=== PATIENT | female | born 1955 | race Caucasian/White ===

== ENCOUNTER 2016-08-29 11:30 | Emergency (ER) | payer OTHER ==
--- NOTE | 2016-08-29 13:41 | RAD ---
INDICATION: Cough, smoking history. COMPARISON: There are no prior studies available for comparison. TECHNIQUE: Dual-energy PA and lateral views of the chest were obtained. FINDINGS: The heart is within normal limits in size. Mediastinal and hilar contours appear within normal limits. The lungs are hyperinflated and clear. No pleural effusion is present. The patient is status post right axillary node dissection. There also appears to be an anterior fusion of the lower cervical spine which is partially visualized on this study. IMPRESSION: FINDINGS SUGGESTIVE OF COPD, NO EVIDENCE FOR ACUTE FINDING.
[2016-08-29 13:46] LABS: Hematocrit 45 % (35-47); Hemoglobin 14.8 g/dl (12.0-16.0); Mean Corpuscular HGB Conc 33 g/dl (31-36); Mean Corpuscular Hemoglobin 30 pg (27-31); Mean Corpuscular Volume 89 fL (80-97); Mean Platelet Volume 9 um3 (7.4-10.4); Red Blood Count 5.02 10^6/ul (4.0-5.4); Red Cell Distribution Width 14 % (10.5-15); White Blood Count 6.2 10^3/ul (3.5-10.8)
[2016-08-29 14:01] LABS: Albumin 4.6 g/dL (3.2-5.2); BUN/Creatinine Ratio 13.8 (8-20); Calcium 9.8 mg/dL (8.6-10.3); EGFR African American 85.7 (>60); EGFR Non-African American 66.6 (>60); Globulin 3.2 g/dL (2-4); Potassium 4.5 mmol/L (3.5-5.0); Total Bilirubin 0.4 mg/dL (0.2-1.0); Total Protein 7.8 g/dL (6.4-8.9)
[2016-08-29] MEDS ORDERED: Iohexol 300* (CONTRAST) 10 ML SDV IV ONE (15:09)
--- NOTE | 2016-08-29 16:02 | RAD ---
Indication: Left inguinal adenopathy, lymphoma. CT of the abdomen and pelvis was performed after oral and IV contrast administration. Coronal and sagittal reconstructed images were obtained. Administered 79.0 ml of OMNIPAQUE 300 mgi/ml was given according to hospital protocol. Lung bases demonstrate no pleural fluid, nodules or masses. Heart demonstrates no pericardial effusion. The liver is normal in size. No focal lesions or intrahepatic ductal dilatation is noted. The patient status post cholecystectomy. The spleen is normal in size. Pancreas demonstrates no mass effect or ductal dilatation. The common duct is not dilated. The patient is status post cholecystectomy. No adrenal masses are noted. The kidneys demonstrate symmetric nephrograms. Atherosclerotic aorta is noted. No dilated loops of bowel are noted. The colon is filled with stool. CT of the pelvis and straight no retroperitoneal or pelvic lymphadenopathy. The urinary bladder is unremarkable. No dilated loops of bowel are noted. The colon is filled with stool. The appendix is visualized and is normal. Small scattered lymph nodes are noted in the inguinal region. They do not appear to be abnormally enlarged. There is suggestion of a left-sided inguinal hernia with some mild infiltration of fat. This may be related to the patient's palpable mass. This measures approximately 2.1 cm. IMPRESSION: NO EVIDENCE OF INGUINAL ADENOPATHY WITH SMALL SCATTERED LYMPH NODES ARE NOTED. NO RETROPERITONEAL ADENOPATHY IS NOTED. THERE IS A LEFT INGUINAL HERNIA CONTAINING FAT AND OMENTUM WITH SOME INDURATION OF FAT. THIS MAY BE RELATED TO THE PATIENT'S PALPABLE NODULE.
[2016-08-29 16:51] VITALS: BP 117/66
--- NOTE | 2016-08-29 21:55 | ED ---
Abebe Le Adam, scribed for Freddie Bergeron MD on 08/29/16 at 1311 . Complex/Multi-Sys Presentation - HPI Summary HPI Summary: Pt is a 61 year old female presenting with concerns about a lump in her left groin that she noticed last night. She has a Hx of cancer at age 36 and states that she had part of her breast and lymph nodes removed. She also reports cough , swollen glands, chest congestion, night sweats, and disturbed sleep patterns over the past month. Hx of tobacco use. FMHx of cancer. - History Of Current Complaint Chief Complaint: EDUpperRespComplaint Time Seen by Provider: 08/29/16 12:57 Hx Obtained From: Patient Onset/Duration: Gradual Onset, Lasting Days, Still Present Timing: Constant Severity Currently: Moderate Severity Initially: Moderate Location: Pain At: - Lump in left groin Aggravating Factor(s): Nothing Alleviating Factor(s): Nothing Associated Signs And Symptoms: Positive: Cough - Allergies/Home Medications Allergies/Adverse Reactions: Allergies Allergy/AdvReac Type Severity Reaction Status Date / Time No Known Allergies Allergy Verified 08/29/16 11:46 PMH/Surg Hx/FS Hx/Imm Hx Infectious Disease History: No Infectious Disease History: Denies: Traveled Outside the [place] in Last 30 Days - Family History Known Family History: Positive: Other - Cancer - Social History Occupation: Unemployed Lives: Alone Alcohol Use: Occasionally Hx Tobacco Use: Yes Smoking Status (MU): Current Every Day Smoker Type: Cigarettes Review of Systems Positive: Other - Disturbed sleep patterns Positive: Other - Congestion Positive: Cough Positive: Other - Lump in left groin All Other Systems Reviewed And Are Negative: Yes Physical Exam - Summary Physical Exam Summary: General: Comfortable, pleasant, no distress, alert. HEENT: Tenderness in the right angle of the mandible without any large obvious adenopathy. Upper and lower dentures. No oral lesions or masses. Neck: Soft, supple. Heart: S1, S2, RRR, no murmurs, rubs, or gallops Lungs: Clear to auscultation, talking and breathing comfortable, good air movement throughout, no wheezes or rales Abdominal: Soft, flat, no organomegaly. Extremities: Mildly tender lymph node in the left inguinal canal, extremely mobile, discrete, smooth borders. No pitting edema in the lower extremities, calves are nontender. Femoral pulses 2+, no pulsatile mass. No adenopathy in axilla or supraclavicular area. Neuro: Alert and oriented x 3. CN 3-12 intact. Psych: Logical, coherent Triage Information Reviewed: Yes Vital Signs On Initial Exam: Initial Vitals Temp Pulse Resp BP Pulse Ox 98.3 F 91 20 133/78 100 08/29/16 11:41 08/29/16 11:41 08/29/16 11:41 08/29/16 11:41 08/29/16 11:41 Vital Signs Reviewed: Yes Diagnostics - Vital Signs Vital Signs Temp Pulse Resp BP Pulse Ox 08/29/16 11:41 98.3 F 91 20 133/78 100 - Laboratory Lab Results: Lab Results 08/29/16 08/29/16 08/29/16 Range/Units 13:35 13:35 13:35 WBC 6.2 (3.5-10.8) 10^3/ul RBC 5.02 (4.0-5.4) 10^6/ul Hgb 14.8 (12.0-16.0) g/dl Hct 45 (35-47) % MCV 89 (80-97) fL MCH 30 (27-31) pg MCHC 33 (31-36) g/dl RDW 14 (10.5-15) % Plt Count 217 (150-450) 10^3/ul MPV 9 (7.4-10.4) um3 Neut % (Auto) 72.5 (38-83) % Lymph % (Auto) 20.8 L (25-47) % Archer % (Auto) 4.8 (1-9) % Eos % (Auto) 1.1 (0-6) % Baso % (Auto) 0.8 (0-2) % Absolute Neuts (auto) 4.5 (1.5-7.7) 10^3/ul Absolute Lymphs (auto) 1.3 (1.0-4.8) 10^3/ul Absolute Monos (auto) 0.3 (0-0.8) 10^3/ul Absolute Eos (auto) 0.1 (0-0.6) 10^3/ul Absolute Basos (auto) 0 (0-0.2) 10^3/ul Absolute Nucleated RBC 0.01 10^3/ul Nucleated RBC % 0.1 Sodium 138 (133-145) mmol/L Potassium 4.5 (3.5-5.0) mmol/L Chloride 102 (101-111) mmol/L Carbon Dioxide 29 (22-32) mmol/L Anion Gap 7 (2-11) mmol/L BUN 12 (6-24) mg/dL Creatinine 0.87 (0.51-0.95) mg/dL Est GFR ( Amer) 85.7 (>60) Est GFR (Non-Af Amer) 66.6 (>60) BUN/Creatinine Ratio 13.8 (8-20) Glucose 90 (70-100) mg/dL Lactic Acid 0.6 (0.5-2.0) mmol/L Calcium 9.8 (8.6-10.3) mg/dL Total Bilirubin 0.40 (0.2-1.0) mg/dL AST 11 L (13-39) U/L ALT 9 (7-52) U/L Alkaline Phosphatase 108 H (34-104) U/L Total Protein 7.8 (6.4-8.9) g/dL Albumin 4.6 (3.2-5.2) g/dL Globulin 3.2 (2-4) g/dL Albumin/Globulin Ratio 1.4 (1-3) Result Diagrams: 08/29/16 13:35 08/29/16 13:35 Lab Statement: Any lab studies that have been ordered have been reviewed, and results considered in the medical decision making process. - Radiology CXR Radiology Interpretation Completed By: Radiologist - IMPRESSION: FINDINGS SUGGESTIVE OF COPD, NO EVIDENCE FOR ACUTE FINDING. - CT A/P CT Interpretation Completed By: Radiologist - IMPRESSION: NO EVIDENCE OF INGUINAL ADENOPATHY WITH SMALL SCATTERED LYMPH NODES ARE NOTED. NO RETROPERITONEAL ADENOPATHY IS NOTED. THERE IS A LEFT INGUINAL HERNIA CONTAINING FAT AND OMENTUM WITH SOME INDURATION OF FAT. THIS MAY BE RELATED TO THE PATIENT'S PALPABLE NODULE. Complex Multi-Symp Course/Dx Assessment/Plan: She presents essentially for her fear of having cancer. She has a lymph node that is somewhat enlarged in her left inguinal canal. It was mildly tender but not appearing inflamed or abscessed. She has a Hx of aggressive cancer which she does not know the name of. She is somewhat unreliable with following up with her PCP. For this reason we did scan for her lymphoma but found nothing. She has had a cough for a few weeks and I believe azithromycin is the next step. She will return for any SOB, fever, or worsening symptoms. Otherwise she will follow up with her PCP for routine screening. She has never had a colonoscopy and she has not had a mammogram in several years. We have made her aware that cancer is still a possibility given her night sweats and weight loss, and today was not considered a full cancer work-up. - Diagnoses Provider Diagnoses: Inguinal adenopathy Discharge - Discharge Plan Condition: Good Disposition: HOME Prescriptions: Azithromyxin STEFAN (NF) [Z-Stefan (Zithromax) 250 mg tabs #6] 2 tab PO .TODAY, THEN 1 DAILY #6 tab Patient Education Materials: Lymphangitis (ED) Referrals: No Primary Care Phys,NOPCP [Primary Care Provider] - Additional Instructions: follow up with your PCP within 1 wk for f/u. The documentation as recorded by the Abebe yousif Adam accurately reflects the service I personally performed and the decisions made by me, Freddie Bergeron MD.
== END 2016-08-29 16:58 | disposition home or self-care (01) ==
LOC: ED 11:30
DX: R59.0 Localized enlarged lymph nodes (principal); R05 Cough; R19.00 Intra-abdominal and pelvic swelling, mass and lump, unspecified site; G47.9 Sleep disorder, unspecified; F17.210 Nicotine dependence, cigarettes, uncomplicated
CPT/HCPCS: 36415; 71020; 74177; 80053; 83605; 85025; 99283; Q9967

== ENCOUNTER 2016-09-30 09:12 | Observation (INO) | payer OTHER ==
[2016-09-30] MEDS ORDERED: Aspirin Low Dose CHEW TAB* 81 MG PO ONE (11:03)
[2016-09-30 13:11] LABS: Hematocrit 42 % (35-47); Hemoglobin 13.8 g/dl (12.0-16.0); Mean Corpuscular HGB Conc 33 g/dl (31-36); Mean Corpuscular Hemoglobin 30 pg (27-31); Mean Corpuscular Volume 90 fL (80-97); Mean Platelet Volume 9 um3 (7.4-10.4); Red Blood Count 4.63 10^6/ul (4.0-5.4); Red Cell Distribution Width 14 % (10.5-15); White Blood Count 6.2 10^3/ul (3.5-10.8)
[2016-09-30 13:25] LABS: Albumin 4.2 g/dL (3.2-5.2); BUN/Creatinine Ratio 14.5 (8-20); Calcium 9.5 mg/dL (8.6-10.3); EGFR African American 90.5 (>60); EGFR Non-African American 70.4 (>60); Globulin 2.9 g/dL (2-4); Potassium 3.9 mmol/L (3.5-5.0); Total Bilirubin 0.5 mg/dL (0.2-1.0); Total Protein 7.1 g/dL (6.4-8.9); Troponin I 0.02 ng/mL (<0.04)
--- NOTE | 2016-09-30 13:36 | RAD ---
HISTORY: Chest pain COMPARISONS: August 29, 2016 VIEWS:1: Single frontal portable view of the chest at 12:45 PM FINDINGS: LINES AND TUBES: None. CARDIOMEDIASTINAL SILHOUETTE: The cardiomediastinal silhouette is normal for portable technique. PLEURA: The costophrenic angles are sharp. No pleural abnormalities are noted. LUNG PARENCHYMA: The lungs are clear. ABDOMEN: The upper abdomen is clear. There is no subphrenic gas. BONES AND SOFT TISSUES: No bone or soft tissue abnormalities are noted. IMPRESSION: NO ACTIVE CARDIOPULMONARY DISEASE.
[2016-09-30] MEDS ORDERED: Iohexol 350* (CONTRAST) 500 ML MDV IV ONE (13:40)
--- NOTE | 2016-09-30 14:06 | RAD ---
HISTORY: Leg swelling and pain, palpable area of the left groin COMPARISONS: None relevant TECHNIQUE: Multiple transverse and longitudinal ultrasound images were obtained of the left lower extremity from the level of the common femoral vein inferiorly through to the infrapopliteal veins using grayscale, color Doppler, and spectral Doppler imaging with and without compression and with augmentation. Comparison images were obtained of the contralateral common femoral vein. FINDINGS: VEINS: The venous system of the left lower extremity is compressible throughout its course, with normal flow on color Doppler imaging and normal response to augmentation on spectral Doppler imaging. SOFT TISSUES: In the area of palpable abnormality, there is echogenic material suggestive of fat-containing inguinal hernia. OTHER FINDINGS: None. IMPRESSION: 1. NO LEFT LOWER EXTREMITY DEEP VEIN THROMBOSIS 2. PROBABLE FAT-CONTAINING LEFT INGUINAL HERNIA. A PROBABLY BENIGN REPORT SHOULD NOT PRECLUDE OR DELAY THE EVALUATION OF A CLINICALLY SUSPICIOUS PALPABLE ABNORMALITY
--- NOTE | 2016-09-30 14:50 | RAD ---
HISTORY: Chest pain, pleuritic, breast cancer, lymphoma COMPARISONS: PET CT dated October 29, 2011 TECHNIQUE: Multiple contiguous axial CT scans of the chest were obtained after the administration of nonionic intravenous contrast, timed to the pulmonary arterial phase of contrast enhancement.. Coronal and sagittal multiplanar reformations are also submitted for review. FINDINGS: NECK AND THYROID: The lower neck and thyroid are unremarkable. CHEST WALL: There is no lower cervical, axillary, or supraclavicular lymphadenopathy by size criteria. HEART AND PERICARDIUM: The heart is unremarkable. AORTA AND PULMONARY VASCULATURE: There is no pulmonary arterial filling defect to suggest pulmonary was. Evaluation of the aorta is limited by the phase of contrast administration. There is atherosclerosis. The aorta is otherwise unremarkable for the limitations of technique. MEDIASTINUM: There is no mediastinal lymphadenopathy by size criteria. VIKTOR: There is no hilar lymphadenopathy by size criteria. AIRWAY AND ESOPHAGUS: The airway is unremarkable, without endobronchial filling defect. The esophagus is grossly normal. LUNG PARENCHYMA: There is a 0.4 cm nodule of the right middle lobe on axial image 32 PLEURA: No pleural abnormalities are noted. UPPER ABDOMEN: The upper abdomen is unremarkable. BONES AND SOFT TISSUES: Mild degenerative changes are noted OTHER: None. IMPRESSION: 1. NO PULMONARY ARTERIAL FILLING DEFECT TO SUGGEST PULMONARY EMBOLISM. 2. 0.4 CM NODULE OF THE RIGHT MIDDLE LOBE. THE DIFFERENTIAL DOES INCLUDE METASTATIC DISEASE GIVEN THE HISTORY OF MALIGNANCY. RECOMMEND ATTENTION ON FOLLOW-UP IMAGING WITH THREE-MONTH FOLLOW-UP CT OF THE CHEST
[2016-09-30] MEDS ORDERED: Ondansetron INJ* 2 MG/ML VIAL IV PRN (16:07)
[2016-09-30] MEDS ORDERED: Acetaminophen TAB* 325 MG PO PRN (16:07)
[2016-09-30] MEDS ORDERED: Mouth Piece, Nicotine* 1 EACH CARTRIDGE INH PRN (16:17)
[2016-09-30] MEDS ORDERED: Mouth Piece, Nicotine* 1 EACH CARTRIDGE ONE (18:33)
[2016-09-30] MEDS: Nicotine Inhaler* 10 MG AMP INH PRN (18:39)
--- NOTE | 2016-09-30 20:50 | HP ---
HISTORY AND PHYSICAL: DATE OF ADMISSION: 09/30/16 PRIMARY CARE PROVIDER: LYNN Verdin ATTENDING PHYSICIAN WHILE IN THE HOSPITAL: Lionel Esposito MD * (report dictated by Pablito Torres NP). CHIEF COMPLAINT: 1. Shortness of breath. 2. Chest pain. 3. Left groin pain. HISTORY OF PRESENT ILLNESS: Mrs. Garcia is a 61-year-old female patient coming into the ER today with complaints of left lower extremity leg swelling, pain that was starting in her back, radiating down her left leg. In addition to this , also found a lump in her left groin that was painful to touch. She also complained today of noticing in the last week she has had chest pain, nonexertional, happens at anytime on the left side that radiates into her chest with associated shortness of breath. Sometimes she has noticed that she has been feeling more short of breath as well. She carries a history of TIA and breast cancer in the past, currently not on any treatment. She states that she has not been sick recently. She denies any recent trips or travel. She says that she has been feeling more short of breath progressively over the weekend. She has been having trouble with this. She has also noted that she had that chest discomfort as well but no vomiting or diarrhea or any nausea and she says the pain has not been exertional. She came into the ER today because she was concerned. She was evaluated in the ER and there was concern for acute coronary syndrome and the hospitalist service was asked to evaluate for admission. PAST MEDICAL HISTORY: Significant for: 1. Breast cancer. 2. TIA. PAST SURGICAL HISTORY: 1. She has had knee surgery. 2. Laparoscopic cholecystectomy. 3. Cervical spine surgery. 4. She has had bilateral salpingo-oophorectomy. HOME MEDICATIONS: Denied. ALLERGIES TO MEDICATIONS: Denied. FAMILY HISTORY: Her mother had cancer and father had a history of SHE. SOCIAL HISTORY: She is a half a pack a day smoker for 48 years. She drinks alcohol occasionally. She is . Surrogate decision maker is her sister. REVIEW OF SYSTEMS: There is no documented fever. She denied having any significant weight change. There was no double vision. She denies having any ear discharge. There is no rhinorrhea. There is no sore throat. She denies having any thyroid enlargement. She does admit to having some chest discomfort. She does admit to having some shortness of breath. No orthopnea, no nocturnal dyspnea. There is no abdominal pain. No nausea, no vomiting. No dysuria, no frequency. No loss of consciousness, pruritus, and no skin ulcerations. Review of 14 systems completed, all others negative. PHYSICAL EXAMINATION GENERAL: At this time, Mrs. Garcia is a 61-year-old female patient. She is sitting in the ER stretcher. Does not appear to be in any acute distress. VITAL SIGNS: Reveals blood pressure 101/56, pulse 59, respirations 18, O2 sat 98%, temperature 98.8. HEENT: Head: Atraumatic, normocephalic. Eyes: EOMs are intact. Sclerae anicteric, not pale. Throat: Oral mucosa appears to be moist. No oropharyngeal erythema. NECK: Supple. LUNGS: Clear to auscultation bilaterally. No wheezes, rales, or rhonchi. HEART: Sounds S1, S2. Regular rate and rhythm. No murmurs, rubs, or gallops. ABDOMEN: Soft, flat, nontender. Bowel sounds present. EXTREMITIES: Pulses were 2+ throughout. She is able to move all 4 extremities with 5/5 strength. NEUROLOGIC: The patient is awake, alert, oriented x3. Tongue midline. Health And Safety Manager were equal. No gross focal deficits. SKIN: Grossly intact. DIAGNOSTIC STUDIES/LAB DATA: Labs today revealed WBC of 6.2, RBC of 4.63, hemoglobin 13.8, hematocrit 42, platelet count of 187. Sodium is 138, potassium 3.9, chloride of 105, bicarb 28, BUN 12, creatinine of 0.83, glucose 83, lactic 0.8. Total bili 0.5, AST 12, ALT 9, alk phos 107. Troponin 0.02, repeat 0.01. Albumin 4.2. She had a venous Doppler study today, showed no left lower lobe DVT, probable fat containing left inguinal hernia, probable benign report. Should not preclude or delay the evaluation if she has a palpable abnormality. The chest, thorax CT showed no pulmonary arterial filling defect to suggest PE, 0.4 cm nodule of the right middle lobe. Differential includes metastatic disease. Given the history of malignancy, recommend attention to followup imaging on 3- month followup. She had a chest x-ray obtained today as well, which showed no active cardiopulmonary disease. There was an EKG that showed normal sinus rhythm with rate of 81. No ST elevations or T-wave inversions were noted. There is no previous EKG for comparison actually. Old medical records were reviewed. She did have a CT of the abdomen and pelvis just done about a month ago, which impression read no evidence of inguinal adenopathy with small scattered lymph nodes that are noted. No retroperitoneal adenopathy. There is a left inguinal hernia containing fat in omentum and some induration of the fat. Old medical records were reviewed. ASSESSMENT AND PLAN: Mrs. Garcia is 61-year-old female patient coming in today with complaints of shortness of breath and chest pain. Hospitalist service asked to evaluate for admission. She will be admitted under observation status for: 1. Chest pain: Again the concern here is that this may represent acute coronary syndrome. She does have a history of smoking, which places her at risk for possible acute coronary syndrome. Again, her story is atypical. I do think though, minimally we should put on an aspirin daily, she has already got one here in the ER. We will do a stress test in the morning, check another troponin, check lipid panel, A1c, place yaneth telemetry. Check an EKG in the morning and follow. 2. Inguinal hernia: At this point, I would defer further followup with outpatient surgeon and follow up with her primary. This is probably the palpable mass felt on exam. 3. Breast carcinoma: Follow with her primary. 4. Pulmonary nodule: She will need a repeat followup CT scan in 3 months. Follow with primary. 5. History of transient ischemic attack: I would recommend aspirin. 6. Tobacco abuse: I did encourage smoking cessation. I ordered nicotine inhaler. 7. Code status: Full code. 8. Fluid, electrolytes, nutrition: She can have a heart healthy diet. TIME SPENT: Time spent on the admission was 60 minutes; greater than half the time was spent [id number] with the patient obtaining my history and physical, the other half time is spent going over the plan of care with the patient and implementing plan of care. I discussed the plan of care with my attending, Dr. Esposito; he is in agreement. PABLITO TORRES NP CC: LYNN Verdin * [id number]/[facility] #: [id number] GAET[place]O
[2016-09-30] MEDS: Heparin VIAL(*) 5000 UNITS/ML VIAL (FIVE THOUSAND) SUBCUT SCH (21:44)
[2016-10-01 04:56] LABS: Hematocrit 38 % (35-47); Hemoglobin 12.9 g/dl (12.0-16.0); Mean Corpuscular HGB Conc 34 g/dl (31-36); Mean Corpuscular Hemoglobin 30 pg (27-31); Mean Corpuscular Volume 89 fL (80-97); Mean Platelet Volume 9 um3 (7.4-10.4); Red Blood Count 4.29 10^6/ul (4.0-5.4); Red Cell Distribution Width 14 % (10.5-15); White Blood Count 4.5 10^3/ul (3.5-10.8)
[2016-10-01 05:16] LABS: BUN/Creatinine Ratio 18.8 (8-20); Calcium 9.1 mg/dL (8.6-10.3); EGFR Non-African American 87.1 (>60); HDL Cholesterol 36.8 mg/dL; Potassium 3.8 mmol/L (3.5-5.0)
[2016-10-01] MEDS ORDERED: traMADol TAB* 50 MG PO PRN (05:18)
[2016-10-01] MEDS: Heparin VIAL(*) 5000 UNITS/ML VIAL (FIVE THOUSAND) SUBCUT SCH (06:11)
[2016-10-01 07:24] VITALS: BP 114/59
[2016-10-01] MEDS: Nicotine Inhaler* 10 MG AMP INH PRN (07:48)
[2016-10-01] MEDS ORDERED: Aspirin EC Low Dose* 81 MG TAB.EC PO SCH (09:00)
--- NOTE | 2016-10-02 03:45 | DS ---
DISCHARGE SUMMARY: DATE OF ADMISSION: 09/30/16 DATE OF DISCHARGE: 10/01/16, against medical advice. PRIMARY CARE PHYSICIAN: LYNN Verdin. HISTORY OF PRESENT ILLNESS AND HOSPITAL SUMMARY: Please see the full history and physical by Pablito Wright NP, for full details. Briefly, Ms. Garcia is a 61-year- old female who presented to the hospital with left lower extremity swelling and some pain, as well as chest pain and shortness of breath. The patient had imaging done of the lower extremities, including a lower extremity Doppler that had showed no DVT and a probable fat-containing left inguinal hernia. Chest x-ray was done also that was negative as well as a CTA of the chest that showed no pulmonary embolus, but it did show 0.4 cm nodule in the right middle lobe that should be followed up in 3 months with a repeat chest CT. The patient was admitted overnight for plans for a cardiac stress test in the morning. As soon as I arrived in the morning, I received a page that the patient was dressed and wanted to leave the hospital immediately. I spoke with her and she stated that she was under the impression that the stress test would be first thing in the morning. She states that she has a new job and needs to get there today and needs to leave immediately. I explained to her the risks of leaving, including worsening pain, heart attack, heart failure, and possibly even . The patient was fully aware and understood the risks involved and signed the paper work to leave against medical advice. TIME SPENT: Total time spent on this discharge, 35 minutes. This is a summary of the hospitalization. Please see the full medical record for further details. CC: LYNN Verdin* [id number]/[facility] #: [id number] [facility]
--- NOTE | 2016-10-12 21:14 | ED ---
Rene Le Alok, scribed for Robert Carrillo MD on 09/30/16 at 1324 . Shortness of Breath - HPI Summary HPI Summary: 61 y/o female presents to the ED and c/o of SOB accompanied by a lump in her groin. Pt states that along with SOB she experiences leg swelling as well as chest pains described as a pressure about one week ago radiating to her back and sides which has subsided since. She denies any abd pain, personal history of blood clotting, or recent travel. She does however have a history of blood clotting in her family. - History of Current Complaint Chief Complaint: EDShortnessOfBreath Time Seen by Provider: 09/30/16 11:02 Hx Obtained From: Patient Onset/Duration: Sudden Onset Current Severity: Moderate Associated Signs & Symptoms: Chest Pain Unrelated to Cough, Edema - Lower extremidy - Allergy/Home Medications Allergies/Adverse Reactions: Allergies Allergy/AdvReac Type Severity Reaction Status Date / Time No Known Allergies Allergy Verified 09/30/16 09:15 PMH/Surg Hx/FS Hx/Imm Hx - Cancer History Cancer Type, Location and Year: NON [facility] Infectious Disease History: No Infectious Disease History: Denies: Traveled Outside the [place] in Last 30 Days - Family History Known Family History: Positive: Other - Cancer, blood clotting - Social History Alcohol Use: Occasionally Substance Use Type: Reports: Marijuana Substance Use Comment - Amount & Last Used: daily Hx Tobacco Use: Yes Smoking Status (MU): Current Every Day Smoker Type: Cigarettes Review of Systems Negative: Fever, Chills Negative: Erythema Negative: Sore Throat Positive: Chest Pain Positive: Shortness Of Breath. Negative: Cough Negative: Abdominal Pain, Vomiting, Nausea Positive: Edema - Leg Swelling. Negative: Myalgia Negative: Rash Neurological: Other - Negative: Dizziness All Other Systems Reviewed And Are Negative: Yes Physical Exam - Summary Physical Exam Summary: Constitutional: Well-developed, Well-nourished, Alert. (-) Distressed Skin: Warm, Dry HENT: Normocephalic; Atraumatic Eyes: Conjunctiva normal Neck: Musculoskeletal ROM normal neck. (-) JVD, (-) Stridor, (-) Tracheal deviation Cardio: Rhythm regular, rate normal, Heart sounds normal; Intact distal pulses; The pedal pulses are 2+ and symmetric. Radial pulses are 2+ and symmetric. (-) Murmur Pulmonary/Chest wall: Effort normal. (-) Respiratory distress, (-) Wheezes, (-) Rales Abd: Soft, (-) Tenderness, (-) Distension, (-) Guarding, (-) Rebound Musculoskeletal: (-) Edema. Left Ankle inguinal lymphotomy Lymph: (-) Cervical adenopathy Neuro: Alert, Oriented x3 Psych: Mood and affect Normal Triage Information Reviewed: Yes Vital Signs On Initial Exam: Initial Vitals Temp Pulse Resp BP Pulse Ox 98.4 F 105 20 131/68 98 09/30/16 09:15 09/30/16 09:15 09/30/16 09:15 09/30/16 09:15 09/30/16 09:15 Vital Signs Reviewed: Yes Diagnostics - Vital Signs Vital Signs Temp Pulse Resp BP Pulse Ox 09/30/16 10:15 98.8 F 72 20 131/65 98 09/30/16 09:15 98.4 F 105 20 131/68 98 - Laboratory Lab Results: Lab Results 09/30/16 09/30/16 09/30/16 Range/Units 11:11 11:11 11:11 WBC 6.2 (3.5-10.8) 10^3/ul RBC 4.63 (4.0-5.4) 10^6/ul Hgb 13.8 (12.0-16.0) g/dl Hct 42 (35-47) % MCV 90 (80-97) fL MCH 30 (27-31) pg MCHC 33 (31-36) g/dl RDW 14 (10.5-15) % Plt Count 187 (150-450) 10^3/ul MPV 9 (7.4-10.4) um3 Neut % (Auto) 72.0 (38-83) % Lymph % (Auto) 20.7 L (25-47) % Letcher % (Auto) 5.7 (1-9) % Eos % (Auto) 1.1 (0-6) % Baso % (Auto) 0.5 (0-2) % Absolute Neuts (auto) 4.5 (1.5-7.7) 10^3/ul Absolute Lymphs (auto) 1.3 (1.0-4.8) 10^3/ul Absolute Monos (auto) 0.4 (0-0.8) 10^3/ul Absolute Eos (auto) 0.1 (0-0.6) 10^3/ul Absolute Basos (auto) 0 (0-0.2) 10^3/ul Absolute Nucleated RBC 0 10^3/ul Nucleated RBC % 0 Sodium 138 (133-145) mmol/L Potassium 3.9 (3.5-5.0) mmol/L Chloride 105 (101-111) mmol/L Carbon Dioxide 28 (22-32) mmol/L Anion Gap 5 (2-11) mmol/L BUN 12 (6-24) mg/dL Creatinine 0.83 (0.51-0.95) mg/dL Est GFR ( Amer) 90.5 (>60) Est GFR (Non-Af Amer) 70.4 (>60) BUN/Creatinine Ratio 14.5 (8-20) Glucose 83 (70-100) mg/dL Lactic Acid 0.8 (0.5-2.0) mmol/L Calcium 9.5 (8.6-10.3) mg/dL Total Bilirubin 0.50 (0.2-1.0) mg/dL AST 12 L (13-39) U/L ALT 9 (7-52) U/L Alkaline Phosphatase 107 H (34-104) U/L Troponin I 0.02 (<0.04) ng/mL Total Protein 7.1 (6.4-8.9) g/dL Albumin 4.2 (3.2-5.2) g/dL Globulin 2.9 (2-4) g/dL Albumin/Globulin Ratio 1.4 (1-3) 09/30/16 Range/Units 14:49 WBC (3.5-10.8) 10^3/ul RBC (4.0-5.4) 10^6/ul Hgb (12.0-16.0) g/dl Hct (35-47) % MCV (80-97) fL MCH (27-31) pg MCHC (31-36) g/dl RDW (10.5-15) % Plt Count (150-450) 10^3/ul MPV (7.4-10.4) um3 Neut % (Auto) (38-83) % Lymph % (Auto) (25-47) % Letcher % (Auto) (1-9) % Eos % (Auto) (0-6) % Baso % (Auto) (0-2) % Absolute Neuts (auto) (1.5-7.7) 10^3/ul Absolute Lymphs (auto) (1.0-4.8) 10^3/ul Absolute Monos (auto) (0-0.8) 10^3/ul Absolute Eos (auto) (0-0.6) 10^3/ul Absolute Basos (auto) (0-0.2) 10^3/ul Absolute Nucleated RBC 10^3/ul Nucleated RBC % Sodium (133-145) mmol/L Potassium (3.5-5.0) mmol/L Chloride (101-111) mmol/L Carbon Dioxide (22-32) mmol/L Anion Gap (2-11) mmol/L BUN (6-24) mg/dL Creatinine (0.51-0.95) mg/dL Est GFR ( Amer) (>60) Est GFR (Non-Af Amer) (>60) BUN/Creatinine Ratio (8-20) Glucose (70-100) mg/dL Lactic Acid (0.5-2.0) mmol/L Calcium (8.6-10.3) mg/dL Total Bilirubin (0.2-1.0) mg/dL AST (13-39) U/L ALT (7-52) U/L Alkaline Phosphatase (34-104) U/L Troponin I 0.01 (<0.04) ng/mL Total Protein (6.4-8.9) g/dL Albumin (3.2-5.2) g/dL Globulin (2-4) g/dL Albumin/Globulin Ratio (1-3) Result Diagrams: 10/01/16 04:18 10/01/16 04:18 Lab Statement: Any lab studies that have been ordered have been reviewed, and results considered in the medical decision making process. - Radiology CXR Xray Interpretation: No Acute Changes - No Active Cardiopulmonary Disease Radiology Interpretation Completed By: Radiologist - CT Chest/Thorax CTA CT Interpretation: Positive (See Comments) - IMPRESSION: 1. NO PULMONARY ARTERIAL FILLING DEFECT TO SUGGEST PULMONARY EMBOLISM. 2. 0.4 CM NODULE OF THE RIGHT MIDDLE LOBE. THE DIFFERENTIAL DOES INCLUDE METASTATIC DISEASE GIVEN THE HISTORY OF MALIGNANCY. RECOMMEND ATTENTION ON FOLLOW-UP IMAGING WITH THREE- MONTH FOLLOW-UP CT OF THE CHEST CT Interpretation Completed By: Radiologist - EKG 09:26 Cardiac Rate: NL - 81 EKG Rhythm: Sinus Rhythm - normal P axis, V-rate 60-99 EKG Interpretation: No STEMI - Additional Comments Diagnostic Additional Comments: Venous Doppler US: IMPRESSION: 1. NO LEFT LOWER EXTREMITY DEEP VEIN THROMBOSIS 2. PROBABLE FAT-CONTAINING LEFT INGUINAL HERNIA. A PROBABLY BENIGN REPORT SHOULD NOT PRECLUDE OR DELAY THE EVALUATION OF A CLINICALLY SUSPICIOUS PALPABLE ABNORMALITY Re-Evaluation - Re-Evaluation First Eval Re-Evaluation Time: 15:13 Comment: Progress update: groin pain changed to mild soreness. MDM: no suspicion of strangulated hernia, instead is sub acute and does not require immediate surgical injection Course/Dx - Diagnoses Provider Diagnoses: Chest wall pain - Physician Notifications Discussed Care of Patient With: Dr. Arredondo (surgery) about sub acute hernia pain and he is now aware Time Discussed With Above Provider: 15:50 Discharge - Discharge Plan Condition: Stable Disposition: ADMITTED TO [facility] documentation as recorded by the Rene yousif Alok accurately reflects the service I personally performed and the decisions made by me, Robert Carrillo MD.
== END 2016-10-01 08:59 | disposition left against medical advice (07) ==
LOC: ED 09:12 → MEDTELE 15:30
PROVIDERS: ADMIT Internal Medicine; ATTEND Hospitalist
DX: R06.02 Shortness of breath (principal); R07.9 Chest pain, unspecified; R10.9 Unspecified abdominal pain; F17.210 Nicotine dependence, cigarettes, uncomplicated; K40.90 Unilateral inguinal hernia, without obstruction or gangrene, not specified as recurrent; R91.1 Solitary pulmonary nodule; Z86.73 Personal history of transient ischemic attack (TIA), and cerebral infarction without residual deficits; Z85.3 Personal history of malignant neoplasm of breast
CPT/HCPCS: 36415; 71010; 71275; 80048; 80053; 80061; 83036; 83605; 84484; 85025; 93005; 96372; 99284; 99406; A9270-GY; G0378; J1644; Q9967

== ENCOUNTER 2019-06-03 11:16 | Emergency (ER) | payer OTHER ==
[2019-06-03 11:32] VITALS: BP 113/86
--- NOTE | 2019-06-03 12:16 | UC ---
Hip/Pelvis Pain - HPI Summary HPI Summary: Pt presents with c/o left hip and groin pain that began s/p falling from standing height 4 days ago. Pt is able to bear minimal weight on left hip and leg. Pt states that pain worsens when flexing hip and rotating hip and upper leg. Pt is using crutches to ambulate. - History Of Current Complaint Chief Complaint: UCGeneralIllness Stated Complaint: SP-LT LEG INJURY,RT SHOULDER INJURY Time Seen by Provider: 06/03/19 11:45 Hx Obtained From: Patient ?: No Onset/Duration: Sudden Onset, Lasting Days, Still Present Timing: Constant - with positioning and weight bearing Severity Initially: Moderate Severity Currently: Moderate Pain Intensity: 8 Location: Discrete At: - left hip and groin Character Of Pain: Dull, Aching, Stiffness Aggravating Factor(s): Movement, Weight Bearing Alleviating Factor(s): Rest, Position Associated Signs And Symptoms: Positive: Negative - Risk Factors Septic Arthritis Risk Factor: Negative - Allergies/Home Medications Allergies/Adverse Reactions: Allergies Allergy/AdvReac Type Severity Reaction Status Date / Time No Known Allergies Allergy Verified 06/03/19 11:27 Home Medications: Home Medications Naproxen TAB* [Naprosyn 250 mg TAB*] 1,000 mg PO Q8H PRN 06/03/19 [History Confirmed 06/03/19] PMH/Surg Hx/FS Hx/Imm Hx Previously Healthy: Yes - Surgical History Surgical History: Yes Surgery Procedure, Year, and Place: RIGHT Wrist, gall bladder removed, neck plate, left knee. OVARIES REMOVED. REMOVED 1/4 RIGHT BREAST AND LYMPH NODES REMOVED - Family History Known Family History: Positive: Other - Cancer, blood clotting - Social History Occupation: Disabled Lives: With Family Alcohol Use: Occasionally Substance Use Type: Marijuana Substance Use Comment - Amount & Last Used: daily Smoking Status (MU): Heavy Every Day Tobacco Smoker Type: Cigarettes Amount Used/How Often: 1/2 PPD Have You Smoked in the Last Year: Yes Household Exposure Type: Cigarettes Review of Systems All Other Systems Reviewed And Are Negative: Yes Constitutional: Positive: Negative Skin: Positive: Bruising - left lateral mid thigh Eyes: Positive: Negative ENT: Positive: Negative Respiratory: Positive: Negative Cardiovascular: Positive: Negative Gastrointestinal: Positive: Negative Genitourinary: Positive: Negative Motor: Positive: Decreased ROM - pain with ROM left hip/upper leg Musculoskeletal: Positive: Arthralgia, Decreased ROM - pain with ROM of left upper leg/hip and with hip flexion, Myalgia Neurological: Positive: Negative Psychological: Positive: Negative Is Patient Immunocompromised?: No Physical Exam Triage Information Reviewed: Yes Appearance: Pain Distress - with movement, Thin Vital Signs: Initial Vital Signs Temp 98.7 F 06/03/19 11:28 Pulse 105 06/03/19 11:28 Resp 18 06/03/19 11:28 BP 113/86 06/03/19 11:28 Pulse Ox 97 06/03/19 11:28 Eye Exam: Normal ENT: Positive: Hearing grossly normal Dental Exam: Normal Respiratory: Positive: No respiratory distress Abdominal Exam: Normal Abdomen Description: Positive: Nontender Musculoskeletal: Positive: Strength Limited @ - left hip and inner thigh with hip flexion c/o pain., ROM Limited @ - left hip flexor Neurological Exam: Normal Psychological Exam: Normal Skin Exam: Normal Hip Injury Course/Dx - Course Course Of Treatment: I discussed with the pt doing xrays. Pt declined - Differential Dx/Diagnosis Differential Diagnosis/HQI/PQRI: Fracture, Strain Provider Diagnosis: Left hip pain, Left groin pain Discharge ED - Sign-Out/Discharge Documenting (check all that apply): Patient Departure All imaging exams completed and their final reports reviewed: No Studies - Discharge Plan Condition: Stable Disposition: HOME Prescriptions: Cyclobenzaprine TAB* [Flexeril 10 MG TAB*] 10 mg PO TID PRN #21 tab PRN Reason: Pain - Mild Patient Education Materials: Pelvic Pain in Women (ED), Hip Pain (ED) Referrals: David Giron MD [Medical Doctor] - Mariano Godoy PA [Primary Care Provider] - If Needed - Billing Disposition and Condition Condition: STABLE Disposition: Home
== END 2019-06-03 12:42 | disposition home or self-care (01) ==
LOC: UCCORT 11:16
DX: M25.552 Pain in left hip (principal); R10.32 Left lower quadrant pain; F17.210 Nicotine dependence, cigarettes, uncomplicated
CPT/HCPCS: 99213; G0463